=== PATIENT | female | born 2000 | race Caucasian/White ===

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

== ENCOUNTER → 2021-08-30 15:27 | Outpatient (CLI) | payer MEDICAID, SELFPAY ==
[2021-08-30 16:46] LABS: Amphetamine Urine VISTA NEGATIVE (<1000 ng/mL); Barbiturate Urine VISTA NEGATIVE (< 200 ng/mL); Benzodiazepine Urine VISTA NEGATIVE (< 200 ng/mL); Cocaine Urine VISTA NEGATIVE (< 300 ng/mL); Ecstacy Urine VISTA NEGATIVE (< 500 ng/mL); Methadone Urine VISTA NEGATIVE (< 300 ng/mL); PCP Urine VISTA NEGATIVE (< 25 ng/mL); THC Urine VISTA NEGATIVE (< 50 ng/mL); Vista UDS pH Range 6
[2021-09-04 00:06] LABS: Chlamydia By Nucleic Acid AMP Negative (Negative)
[2021-09-04 00:41] LABS: Gonococcus By Nucleic Acid AMP Negative (Negative)
[2021-09-04 16:32] LABS: HPV Reflexed? NOT INDICATED
== END ==
PROVIDERS: PCP Family Medicine; Visit Provider Obstetrics & Gynecology
DX: Z34.80 Encounter for supervision of other normal pregnancy, unspecified trimester (principal)
CPT/HCPCS: 80307; 87086; 87088; 87491; 87591; 88175; G0145

== ENCOUNTER → 2021-09-07 14:03 | Outpatient (CLI) | payer MEDICAID, SELFPAY ==
[2021-09-07 15:11] LABS: NATERA MAILED SPECIMEN
[2021-09-07 15:21] LABS: Absolute Lymphocyte Count 1.46 X10^3/uL (0.83-4.51); Absolute Neutrophil Count 6.4 X10^3/uL (2.0-7.7); Basophil# 0.02 X10^3/uL; Basophil% 0.2 % (0-1); Eosinophil# 0.06 X10^3/uL; Eosinophils% 0.7 % (0-5); Hematocrit 38.8 % (37-47); Hemoglobin 13.6 g/dL (12.0-15.0); Lymphocyte # 1.46 X10^3/ul (0.83-4.51); Lymphocyte % 17.6 % (19-41); Mean Corp Hgb Conc 35.1 g/dL (32-36); Mean Corpuscular Hgb 30.1 pg (27.0-32.0); Mean Corpuscular Volume 85.8 fL (81-99); Mean Platelet Vol. 10.2 fl (6.2-12.0); Monocyte# 0.32 X10^3/uL; Monocyte% 3.9 % (0-10); NRBC Flagged by Analyzer 0 % (0-5); Neutrophil # 6.39 X10^3/uL (2.7-7.7); Neutrophil % 77.2 % (47-70); Platelet Count 172 K/mm3 (150-450); RBC Distribution Width CV 12.8 % (11.6-14.6); RBC Distribution Width SD 39.9 fl (35.1-43.9); Red Blood Count 4.52 M/mm3 (4.2-5.4); White Blood Count 8.3 K/mm3 (4.4-11.0)
[2021-09-10 08:37] LABS: HIV - WCH Non-Reactive (Nonreactive); Hepatitis B Surface Antigen Non-Reactive (Nonreactive); Hepatitis C Antibody Non-Reactive (Nonreactive); Rubella IgG Reactive (Nonreactive); Syphilis Antibodies Non-reactive
== END ==
PROVIDERS: PCP Family Medicine; Referring Provider Obstetrics & Gynecology; Visit Provider Obstetrics & Gynecology
DX: Z34.80 Encounter for supervision of other normal pregnancy, unspecified trimester (principal)
CPT/HCPCS: 36415; 85025; 86703; 86762; 86780; 86803; 86850; 86900; 86901; 87340

== ENCOUNTER → 2021-11-19 13:10 | Outpatient (CLI) | payer MEDICAID, SELFPAY | PROVIDERS: PCP Family Medicine; Referring Provider Obstetrics & Gynecology; Visit Provider Obstetrics & Gynecology | DX: Z36.9 Encounter for antenatal screening, unspecified (principal) | CPT/HCPCS: 36415 ==

== ENCOUNTER 2022-01-07 08:48 | Outpatient (CLI) | payer MEDICAID, SELFPAY ==
[2022-01-07 09:22] LABS: Absolute Lymphocyte Count 1.59 X10^3/uL (0.83-4.51); Absolute Neutrophil Count 6.9 X10^3/uL (2.0-7.7); Basophil# 0.03 X10^3/uL; Basophil% 0.3 % (0-1); Eosinophil# 0.08 X10^3/uL; Eosinophils% 0.9 % (0-5); Hematocrit 34.1 % (37-47); Hemoglobin 11.4 g/dL (12.0-15.0); Lymphocyte # 1.59 X10^3/ul (0.83-4.51); Lymphocyte % 17.2 % (19-41); Mean Corp Hgb Conc 33.4 g/dL (32-36); Mean Corpuscular Hgb 30.1 pg (27.0-32.0); Mean Platelet Vol. 9.5 fl (6.2-12.0); Monocyte# 0.52 X10^3/uL; Monocyte% 5.6 % (0-10); NRBC Flagged by Analyzer 0 % (0-5); Neutrophil # 6.93 X10^3/uL (2.7-7.7); Neutrophil % 74.7 % (47-70); Platelet Count 178 K/mm3 (150-450); RBC Distribution Width CV 13.9 % (11.6-14.6); RBC Distribution Width SD 45.7 fl (35.1-43.9); Red Blood Count 3.79 M/mm3 (4.2-5.4); White Blood Count 9.3 K/mm3 (4.4-11.0)
[2022-01-07 09:49] LABS: Glucose Challenge Gest 1H 50g 134 mg/dL (70-140)
== END 2022-01-07 23:59 | disposition home or self-care (01) ==
LOC: LAB 08:50
PROVIDERS: PCP Family Medicine; Referring Provider Obstetrics & Gynecology; Visit Provider Obstetrics & Gynecology
DX: Z13.1 Encounter for screening for diabetes mellitus (principal)
CPT/HCPCS: 36415; 82950; 85025

== ENCOUNTER 2022-03-13 13:33 | Outpatient (CLI) | payer MEDICAID, SELFPAY | END 2022-03-13 23:59 | disposition home or self-care (01) | LOC: LABSPEC 13:38 | PROVIDERS: PCP Family Medicine; Visit Provider Obstetrics & Gynecology | DX: Z34.80 Encounter for supervision of other normal pregnancy, unspecified trimester (principal) | CPT/HCPCS: 87081 ==

== ENCOUNTER 2022-03-13 18:25 | Outpatient (CLI) | payer MEDICAID, SELFPAY ==
[2022-03-13 18:36] VITALS: BP 115/73; PULSE 93; TEMP 37.1; O2SAT 98
[2022-03-13 18:54] VITALS: BP 115/73; PULSE 91; PULSE 92; O2SAT 98
[2022-03-13 19:10] VITALS: BMI 26.0
[2022-03-13 22:08] LABS: Group B Strep DNA By PCR Negative (Negative); Internal Control PASS; Specimen Processing Control PASS
[2022-03-13 22:09] LABS: Probe Check PASS
--- NOTE | 2022-03-14 04:33 | OB.TRI.PN ---
Progress Notes Date of Service: 03/13/22 Progress Note: riginal Note: HPI - General General Date of Admission: 03/13/22 Date of Service: 03/13/22 Chief Complaint: labor contractions HPI Narrative COLBY HATHAWAY, is a 21 y/o @ 37 weeks 2 days F who presents with painful contractions. she was seen in the office today and foun to be 3 cm/80/-2 and per nurse, she is the same Maternal Data Information LAILA Calculator Estimated Delivery Date Method Current WG Current Estimate 04/02/22 LMP (Certain) 37w 2d Other Estimates 04/01/22 Ultrasound #1 37w 3d PFSH PFSH Home Medications [id number]-[id number] 1 tab PO DAILY 03/13/22 [History Last Taken 12/14/21] ibuprofen 600 mg PO Q6H PRN 7 Days #28 tab 03/14/22 [Rx Last Taken Unknown] Allergy/AdvReac Type Severity Reaction Status Date / Time Penicillins Allergy Mild Angioedema Verified 03/13/22 10:13 Family History Grandmother Breast cancer Social History household members: spouse current occupational status: unemployed Smoking Status: Never smoker second hand exposure: No alcohol intake: never substance use type: does not use caffeine: Yes Type: carbonated beverages what type of physical activity do you participate in: walking seatbelt use: always do you feel safe at home: Yes additional social history: - [place] History 2 Elective abortions Hx Para 1 Spontaneous abortions Hx # Term Pregnancies Ectopic pregnancies Hx # Pregnancies Multiple births # of living children 1 Past Pregnancies Del. Date Name GA/Weeks Outcome Route Bth Weight Infant Gen Labor Lgth Anesthesia Del [facility] Provider FOB 10/02/19 Iftikhar 38 live - full term vacuum 7lbs 3oz Male 13 hours epidural [facility] [place] Delivery Date: 10/02/19 Prolonged 2nd stage Lexi Fernandez Visit Details Expected Delivery Route/Plan Labor Preferences- CB/BF classes: no labor support person: [place] labor intervention preferences: [] pain management options preferred: epidural cut cord/dad catch: yes : yes PP control planned: discussed IUD discussed possible routes of delivery and associated risks: [] special requests: [] Plans Covid status: non immune counseled regarding risk of covid in vs vaccination and declined vaccination Flu vaccine: discussed Tdap vaccine: given Rhogam: NA LARC form signed: yes Problem list reviewed and updated with the most current plan of care details and appropriate orders placed. Relevant counseling for the gestational age provided. Continue routine care and follow up unless otherwise noted in visit notes/problem list details OB Flowsheet Initial Weight: 120 lb Date EGA Weight BP Urine Prot Glucose FHR FuHt Pres Dilation Effaced St Visit Note 08/30/21 9w 2d 120 lb 6 oz (+6 oz) 114/78 170 SM- CRL cons with LMP SM- CRL 2cm cons with LMP 09/24/21 12w 6d 121 lb (+16 oz) 110/76 160 SM- no vb crmaping 10/22/21 16w 6d 125 lb 2 oz (+5 lb 2 oz) 114/72 157 JV- low risk NIPT. afp ordered. no complaints. 11/19/21 20w 6d 132 lb (+12 lb) 104/72 Negative Negative 155 SM- no vb lof good fm no reuglar ctx afp drawn today 12/26/21 26w 1d 140 lb (+20 lb) 118/76 Negative 148 MH-No VB, LOF. Good FM. will do 28wk labs, tdap next visit. Larc done 01/07/22 27w 6d 142 lb 6 oz (+22 lb 6 oz) 120/70 Negative Negative 153 27 MH-No VB, LOF. Good FM. 28 wk labs and tdap today 01/29/22 31w 0d 145 lb (+25 lb) 130/78 Negative Negative 147 31 JV- no lof, vaginal bleeding, or dec fm. no complaints today 02/04/22 31w 6d 148 lb (+28 lb) 126/82 Negative Negative 150 32 Cephalic Sm- no vb lof good fm no regular ctx 02/22/22 34w 3d 149 lb 6 oz (+29 lb 6 oz) 118/70 Negative Negative 145 34 Cephalic Sm- no vb lof good fm no regular ctx 03/04/22 35w 6d 149 lb (+29 lb) 102/60 Negative Negative 140 36 Cephalic SM- no vb lof good fm nor euglar ctx 03/13/22 37w 1d 149 lb (+29 lb) 112/88 Negative Negative 185 37 Cephalic 3 80 -2 JV- NST today for tachycardia, heart rate came down to 160's and reactive. pt is having contractions on the monitor every 2-3 min but not feeling them. labor precautions discussed 03/14/22 37w 2d 147 lb (+27 lb) 132/80 132/80 123/64 123/64 ROS Constitutional Constitutional: Reports systems reviewed and no addt'l complaints, except as documented Gastrointestinal Gastrointestinal: Denies bloating, constipation, cramping, diarrhea, nausea or vomiting Genitourinary Genitourinary: Reports other Details: Denies vaginal odor, vaginal bleeding, or vaginal discharge ; Denies difficulty urinating or flank pain Physical Exam HEENT normocephalic Resp normal respiratory effort and normal air movement no CVA tenderness Extremity normal to inspection General Extremity: edema bilateral (trace ) NST FHR Rate Baby A Baseline: 140 Variability:: Moderate Accelerations:: 15 x 15 Decelerations:: None NST Reactive:: Yes FHR Category:: Category I Assessment & Plan (1) False labor: PLAN: pt did not change cervix for 5 hours.She was given options to go home and rest or stay over night and she chooses to go home. She was discharged to home at 11:30 pm on 03/13/22 Charges/Coding Multi Select Codes Visit Charges Office Visit/Consults: 97357 OV L3 Est Urinary/Genital Urinary/Genital CPT Codes: 58945-95 non-stress test Interp Addendum entered and electronically signed by Mela Lane DO 03/14/22 04:30: Laboratory Studies: Laboratory Tests 03/13/22 Range/Units 20:45 Group B Strep DNA Negative (Negative) Specimen Comment Not Reportable Charges/Coding Multi Select Codes Visit Charges Office Visit/Consults: 18710 OV L3 Est Urinary/Genital Urinary/Genital CPT Codes: 18492-38 non-stress test Interp
== END 2022-03-13 23:59 | disposition home or self-care (01) ==
LOC: WPOUT 18:29 → WP 18:29
PROVIDERS: PCP Family Medicine; Visit Provider Obstetrics & Gynecology
DX: O47.9 False labor, unspecified (principal); Z3A.37 37 weeks gestation of pregnancy
CPT/HCPCS: 59025; 59050; 87081; 87653; 99218; G0378

== ENCOUNTER 2022-03-14 03:35 | Inpatient (IN) | payer MEDICAID, SELFPAY ==
[2022-03-14] VITALS (17 sets, daily range): BP systolic 96–132; BP diastolic 59–80; PULSE 76–121; RESP 16; TEMP 36.1–37.2; O2SAT 100; BMI 26.0
[2022-03-14 04:09] LABS: Absolute Lymphocyte Count 2.82 X10^3/uL (0.83-4.51); Absolute Neutrophil Count 8.3 X10^3/uL (2.0-7.7); Basophil# 0.06 X10^3/uL; Basophil% 0.5 % (0-1); Eosinophil# 0.08 X10^3/uL; Eosinophils% 0.7 % (0-5); Hematocrit 36.3 % (37-47); Lymphocyte # 2.82 X10^3/ul (0.83-4.51); Lymphocyte % 23.1 % (19-41); Mean Corp Hgb Conc 33.1 g/dL (32-36); Mean Corpuscular Hgb 26.8 pg (27.0-32.0); Mean Platelet Vol. 10.3 fl (6.2-12.0); Monocyte% 6.5 % (0-10); NRBC Flagged by Analyzer 0 % (0-5); Neutrophil # 8.31 X10^3/uL (2.7-7.7); Neutrophil % 67.9 % (47-70); Platelet Count 202 K/mm3 (150-450); RBC Distribution Width SD 42.6 fl (35.1-43.9); Red Blood Count 4.48 M/mm3 (4.2-5.4); White Blood Count 12.2 K/mm3 (4.4-11.0)
--- NOTE | 2022-03-14 04:17 | HP.PCM.OB_ITS ---
HPI - General General Date of Admission: 03/14/22 HPI Narrative COLBY HATHAWAY, is a 21 y/o @ 37 weeks 2 days who presents to L&D with rupture of membranes and 5 cm dilated per nurse. She was dischraged a few hours early from triage due to false labor. Maternal Data Information LAILA Calculator Estimated Delivery Date Method Current WG Current Estimate 04/02/22 LMP (Certain) 37w 2d Other Estimates 04/01/22 Ultrasound #1 37w 3d PFSH PFSH Home Medications ejdyplxb-ckd-Se-FA [] 1 tab PO DAILY 03/13/22 [History Last Taken 12/14/21] Allergy/AdvReac Type Severity Reaction Status Date / Time Penicillins Allergy Mild Angioedema Verified 03/13/22 10:13 Family History Grandmother Breast cancer Social History household members: spouse current occupational status: unemployed Smoking Status: Never smoker second hand exposure: No alcohol intake: never substance use type: does not use caffeine: Yes Type: carbonated beverages what type of physical activity do you participate in: walking seatbelt use: always do you feel safe at home: Yes additional social history: - Jackson History 2 Elective abortions Hx Para 1 Spontaneous abortions Hx # Term Pregnancies Ectopic pregnancies Hx # Pregnancies Multiple births # of living children 1 Past Pregnancies Del. Date Name GA/Weeks Outcome Route Bth Weight Infant Gen Labor Lgth Anesthesia [facility] Provider FOB 10/02/19 Iftikhar 38 live - full term vacuum 7lbs 3oz Male 13 h ours epidural [facility] Jackson Delivery Date: 10/02/19 Prolonged 2nd stage Lexi Fernandez Visit Details Expected Delivery Route/Plan Labor Preferences- CB/BF classes: no labor support person: Jackson labor intervention preferences: [] pain management options preferred: epidural cut cord/dad catch: yes : yes PP control planned: discussed IUD discussed possible routes of delivery and associated risks: [] special requests: [] Plans Covid status: non immune counseled regarding risk of covid in vs vaccination and declined vaccination Flu vaccine: discussed Tdap vaccine: given Rhogam: NA LARC form signed: yes Problem list reviewed and updated with the most current plan of care details and appropriate orders placed. Relevant counseling for the gestational age provided. Continue routine care and follow up unless otherwise noted in visit notes/problem list details OB Flowsheet Initial Weight: 120 lb Date -?-?-?-?-?-?-?-?-?-?-?-?- EGA Weight BP Urine Prot -?-?-?-?-?-?-?-?-?-?-?-?- Glucose FHR FuHt Pres Dilation -?-?-?-?-?-?-?-?-?-?-?-?- Effaced St Visit Note 08/30/21 -?-?-?-?-?-?-?-?-?-?-?-?- 9w 2d 120 lb 6 oz (+6 oz) 114/78 -?-?-?-?-?-?-?-?-?-?-?-?- 170 -?-?-?-?-?-?-?-?-?-?-?-?- SM- CRL cons wit h LMP SM- CRL 2cm cons with LMP 09/24/21 -?-?-?-?-?-?-?-?-?-?-?-?- 12w 6d 121 lb (+16 oz) 110/76 -?-?-?-?-?-?-?-?-?-?-?-?- 160 -?-?-?-?-?-?-?-?-?-?-?-?- SM- no vb crmapi ng 10/22/21 -?-?-?-?-?-?-?-?-?-?-?-?- 16w 6d 125 lb 2 oz (+5 lb 2 oz) 114/72 -?-?-?-?-?-?--?-?-?-?-?-?- 157 -?-?-?-?-?-?-?-?-?-?-?-?- JV- low risk NIP T. afp ordered. no complaints. 11/19/21 -?-?-?-?-?-?-?-?-?-?-?-?- 20w 6d 132 lb (+12 lb) 104/72 Negative -?-?-?-?-?-?-?-?-?-?-?-?- Negative 155 -?-?-?-?-?-?-?-?-?-?-?-?- SM- no vb lof go od fm no reuglar ctx afp drawn today 12/26/21 -?-?-?-?-?-?-?-?-?-?-?-?- 26w 1d 140 lb (+20 lb) 118/76 Negative -?-?-?-?-?-?-?-?-?-?-?-?- 148 -?-?-?-?-?-?-?-?-?-?-?-?- MH-No VB, LOF. G ood FM. will do 28wk labs, tdap next visit. Larc done 01/07/22 -?-?-?-?-?-?-?-?-?-?-?-?- 27w 6d 142 lb 6 oz (+22 lb 6 oz) 120/70 Negative -?-?-?-?-?-?-?-?-?-?-?-?- Negative 153 27 -?-?-?-?-?-?-?-?-?-?-?-?- MH-No VB, LOF. G ood FM. 28 wk labs and tdap today 01/29/22 -?-?-?-?-?-?-?-?-?-?-?-?- 31w 0d 145 lb (+25 lb) 130/78 Negative -?-?-?-?-?-?-?-?-?-?-?-?- Negative 147 31 -?-?-?-?-?-?-?-?-?-?-?-?- JV- no lof, vagi nal bleeding, or dec fm. no complaints today 02/04/22 -?-?-?-?-?-?-?-?-?-?-?-?- 31w 6d 148 lb (+28 lb) 126/82 Negative -?-?-?-?-?-?-?-?-?-?-?-?- Negative 150 32 Cephalic -?-?-?-?-?-?-?-?-?-?-?-?- Sm- no vb lof go od fm no regular ctx 02/22/22 -?-?-?-?-?-?-?-?-?-?-?-?- 34w 3d 149 lb 6 oz (+29 lb 6 oz) 118/70 Negative -?-?-?-?-?-?-?-?-?-?-?-?- Negative 145 34 Cephalic -?-?-?-?-?-?-?-?-?-?-?-?- Sm- no vb lof go od fm no regular ctx 03/04/22 -?-?-?-?-?-?-?-?-?-?-?-?- 35w 6d 149 lb (+29 lb) 102/60 Negative -?-?-?-?-?-?-?-?-?-?-?-?- Negative 140 36 Cephalic -?-?-?-?-?-?-?-?-?-?-?-?- SM- no vb lof go od fm nor euglar ctx 03/13/22 -?-?-?-?-?-?-?-?-?-?-?-?- 37w 1d 149 lb (+29 lb) 112/88 Negative -?-?-?-?-?-?-?-?-?-?-?-?- Negative 185 37 Cephalic 3 -?-?-?-?-?-?-?-?-?-?-?-?- 80 -2 JV- NST to day for tachycardia, heart rate came down to 160's and reactive. pt is having contractions on the monitor every 2-3 min but not feeling them. labor precautions discussed 03/14/22 -?-?-?-?-?-?-?-?-?-?-?-?- 37w 2d 147 lb (+27 lb) 132/80 132/80 123/64 123/64 -?-?-?-?-?-?-?-?-?-?-?-?- -?-?-?-?-?-?-?-?-?-?-?-?- ROS Constitutional Constitutional: Denies change in weight, fatigue, fever(s), headache(s), poor appetite or weakness Eyes Eyes: Denies blurry vision, change in vision, seeing flashes or spots in vision ENT HEENT: Denies dizziness, headache(s), loss taste/smell or sore throat Cardiovascular Cardiovascular: Denies chest pain, dizziness, dyspnea, irregular heart rhythm, leg edema, palpitations, rapid heart rate or vomiting Respiratory/Chest Respiratory/Chest: Denies chest tightness, cough, dyspnea or breast pain Gastrointestinal Gastrointestinal: Denies abdominal pain, anorexia, constipation, cramping, diarrhea, hemorrhoids, vomiting or weight changes Genitourinary Genitourinary: Denies dysuria, flank pain, genital lesions, genital pain, urinary frequency or urinary urgency Musculoskeletal Musculoskeletal: Denies back pain, difficulty walking, joint pain, limited range of motion, muscle cramps or numbness Integumentary Integumentary: Denies lesions or unusual bruising Neurologic Neurologic: Denies abnormal movements, abnormal speech, dizziness, numbness, seizure-like activity or syncope Psychiatric Psychiatric: Denies anxiety, behavioral changes, change in appetite, change in libido, cognitive impairment, confusion, depression, difficulty concentrating, hallucinations or suicidal thoughts Endocrine Endocrinology: Denies excessive sweating, polydipsia or polyuria Hematologic/Lymphatic Hematologic/Lymphatic: Denies easy bleeding, easy bruising or lymphadenopathy Allergic/Immunologic Allergic/Immunologic: Denies itchy eyes, lip swelling, seasonal rhinorrhea, rhinitis, throat swelling, tongue swelling, eczemia, wheezing or asthma Vital Signs Vital Signs Vital Signs: 03/14/22 03:24 03/14/22 03:29 03/14/22 03:32 Temperature 97.0 F L Temperature Source Temporal Pulse Rate 97 107 H Blood Pressure BP Systolic BP Diastolic Pulse Ox 100 100 03/14/22 03:33 Temperature Temperature Source Pulse Rate 121 H Blood Pressure 132/80 H BP Systolic 132 BP Diastolic 80 Pulse Ox Weight Weight: 147 lb Body Mass Index (BMI) 26.0 Physical Exam Const alert, oriented x3, no apparent distress and healthy appearing General Appearance: cooperative; Negative for anxious HEENT normocephalic Face and Sinus: normal facial exam Eyes EOMs intact bilaterally and no scleral icterus General Eye: normal appearance of both eyes Neck full ROM and supple Lymph Lymphatic: no lymphadenopathy noted Chest Chest: abnormal inspection of the chest Resp normal respiratory effort Effort and Inspection: able to speak in complete sentences Cardio regular rate GI soft to palpation and non-tender Inspection: gravid Palpation: soft; Negative for tender external exam normal Back/Spine no CVA tenderness Extremity normal to inspection, full ROM and no clubbing, cyanosis or edema General Extremity: Negative for calf tenderness or edema Skin Lesions: no lesions Rashes: no rashes Psych mental status grossly normal Labs Labs Labs: Blood Type O POSITIVE Antibody Screen NEGATIVE Hct 36.3 % (37-47) L Hgb 12.0 g/dL (12.0-15.0) Obstetrics US Syphilis Total Ab Non-reactive Rubella IgG Antibody Reactive (Nonreactive) Hep Bs Antigen Non-Reactive (Nonreactive) Chlamydia DNA (KISHA) Negative (Negative) Neisseria gonorrhoeae DNA (KISHA) Negative (Negative) HIV 1&2 Antibody Non-Reactive (Nonreactive) Glucose 1 Hr 50 gm 134 mg/dL (70-140) Group B Strep DNA Negative (Negative) Rhogam given: No Miscellaneous Test Assessment & Plan (1) Supervision of other normal : COMMENT: PRR LAILA: 04/02/22 girl Ruben PC: Iftikhar Spouse: Jackson (2) : QUALIFIERS: Weeks of gestation: 37 weeks Qualified Code(s): Z3A.37 - 37 weeks gestation of COMMENT: genetics- low risk female, carrier- neg . NL anatomy, neg AFP screen PLAN: Patient presents IAL, plan expectant management for , pitocin/AROM PRN if needed. Pain management: unsure. GBS negative . Management of any complications: none I have reviewed the [facility] and made any clinically relevant updates.
--- NOTE | 2022-03-14 04:19 | OP.PCM_ITS ---
Maternal Data Information LAILA Calculator Estimated Delivery Date Method Current Current Estimate 04/02/22 LMP (Certain) 37w 2d Other Estimates 04/01/22 Ultrasound #1 37w 3d Vaginal Delivery Maternal Presentation Maternal Presentation: Active Labor Operative Information Date of Procedure: 03/14/22 Pre-Operative Diagnosis: @ 37 weeks 2 days, SROM, active labor Post-Operative Diagnosis: @ 37 weeks 2 days, SROM, active labor Surgery / Procedure Performed: Spontaneous Vaginal Delivery Type of Anesthesia: None Estimated Blood Loss: 50cc Findings Description of Procedure: Patient began pushing and delivered the head in the ALEK presentation. The head was delivered atraumatically and a loose nuchal cord ?1 was identified and easily reduced over the 's head. The anterior and posterior shoulders delivered without complication followed by the rest of the infant and the was placed on the maternal abdomen. Delayed cord clamping was employed for approximately 60 seconds. Cord was clamped and cut and gentle traction was applied to the cord and the placenta delivered spontaneously immediately following it was noted to be intact with three-vessel cord. The perineum and vagina were inspected and noted to have no laceration. EBL was 50cc. Patient and infant tolerated delivery well. Presentation: Vertex Amniotic Fluid Description: Clear Placental Delivery Description: Spontaneous Placenta Disposition: [facility] Cord Vessel Description: 3 Vessels Cord Entanglement: Around neck x 1, loose Infant A Gender: Female (1 minute): 8 (5 minute): 9 Delayed Cord Clamping: Yes Post Vaginal Delivery Medications Given After Delivery: IV Pitocin Episiotomy Description: None Laceration: None Complication Complications: None Multi Select Codes Urinary/Genital Urinary/Genital CPT Codes: 41864 Vaginal Delivery [facility]
--- NOTE | 2022-03-14 04:22 | PCM.DC ---
Discharge Instructions Diet Discharge Diet: No restrictions Activity Discharge Activity: Return to Normal Activity, May Not Drive (while taking narcotic pain medications.) and May Shower May resume sexual activity in: 4-6 weeks Dressing / Incision Call your doctor if your incision/area has: Continuous Slow Oozing, Sudden Increased Bleeding, Increased Pain/ Swelling, Increased Redness and Foul Smelling Discharge Follow Up Care Please Follow Up With: Mela Lane, When: Call [phone] to make an appointment with your doctor in 6 weeks. If you had elevated blood pressure or 4th degree laceration, you will need to be seen in 2 weeks. Test Results: Test results from this visit will be discussed in further detail at your follow-up appointment, if applicable. Discharge Plan Admission Admit Date/Time: 03/14/22 03:35 Primary Reason for Your Visit: vaginal delivery Attending Provider: Mela Lane Primary Care Provider: Bharati Sharpe Discharge Orders/Prescriptions Prescriptions: New ibuprofen 600 mg tablet 600 mg PO Q6H PRN (Reason: pain (scale score 4-6)) 7 Days Qty: 28 RF: 0 Continued jzmnhedw-[id number]-[id number] 1 mg Tablet 1 tab PO DAILY RF: 0 Referrals / Follow Up: Bharati Sharpe PA-C [Primary Care Provider] - Disposition Disposition (needs filled in before D/C Order can be placed): Home, Self Care
--- NOTE | 2022-03-14 04:27 | OB.TRI.HP_ITS ---
HPI - General General Date of Admission: 03/13/22 Date of Service: 03/13/22 Chief Complaint: labor contractions HPI Narrative COLBY HATHAWAY, is a 21 y/o @ 37 weeks 2 days F who presents with painful contractions. she was seen in the office today and foun to be 3 cm/80/-2 and per nurse, she is the same Maternal Data Information LAILA Calculator Estimated Delivery Date Method Current WG Current Estimate 04/02/22 LMP (Certain) 37w 2d Other Estimates 04/01/22 Ultrasound #1 37w 3d PFSH PFSH Home Medications [id number]-[id number]-Fg-FA 1 tab PO DAILY 03/13/22 [History Last Taken 12/14/21] ibuprofen 600 mg PO Q6H PRN 7 Days #28 tab 03/14/22 [Rx Last Taken Unknown] Allergy/AdvReac Type Severity Reaction Status Date / Time Penicillins Allergy Mild Angioedema Verified 03/13/22 10:13 Family History Grandmother Breast cancer Social History household members: spouse current occupational status: unemployed Smoking Status: Never smoker second hand exposure: No alcohol intake: never substance use type: does not use caffeine: Yes Type: carbonated beverages what type of physical activity do you participate in: walking seatbelt use: always do you feel safe at home: Yes additional social history: - [place] History 2 Elective abortions Hx Para 1 Spontaneous abortions Hx # Term Pregnancies Ectopic pregnancies Hx # Pregnancies Multiple births # of living children 1 Past Pregnancies Del. Date Name GA/Weeks Outcome Route Bth Weight Gen Labor L[facility]est[facility] F[facility] 10/02/19 Iftikhar 38 live - full term vacuum 7lbs 3oz Male 13 h ours epidural [facility] [place] Delivery Date: 10/02/19 Prolonged 2nd stage Lexi Fernandez Visit Details Expected Delivery Route/Plan Labor Preferences- CB/BF classes: no labor support person: [place] labor intervention preferences: [] pain management options preferred: epidural cut cord/dad catch: yes : yes PP control planned: discussed IUD discussed possible routes of delivery and associated risks: [] special requests: [] Plans Covid status: non immune counseled regarding risk of covid in vs vaccination and declined vaccination Flu vaccine: discussed Tdap vaccine: given Rhogam: NA LARC form signed: yes Problem list reviewed and updated with the most current plan of care details and appropriate orders placed. Relevant counseling for the gestational age provided. Continue routine care and follow up unless otherwise noted in visit notes/problem list details OB Flowsheet Initial Weight: 120 lb Date -?-?-?-?-?-?-?-?-?-?-?-?- EGA Weight BP Urine Prot -?-?-?-?-?-?-?-?-?-?-?-?- Glucose FHR FuHt Pres Dilation -?-?-?-?-?-?-?-?-?-?-?-?- Effaced St Visit Note 08/30/21 -?-?-?-?-?-?-?-?-?-?-?-?- 9w 2d 120 lb 6 oz (+6 oz) 114/78 -?-?-?-?-?-?-?-?-?-?-?-?- 170 -?-?-?-?-?-?-?-?-?-?-?-?- SM- CRL cons wit h LMP SM- CRL 2cm cons with LMP 09/24/21 -?-?-?-?-?-?-?-?-?-?-?-?- 12w 6d 121 lb (+16 oz) 110/76 -?-?-?-?-?-?-?-?-?-?-?-?- 160 -?-?-?-?-?-?-?-?-?-?-?-?- SM- no vb crmapi ng 10/22/21 -?-?-?-?-?-?-?-?-?-?-?-?- 16w 6d 125 lb 2 oz (+5 lb 2 oz) 114/72 -?-?-?-?-?-?-?-?-?-?-?-?- 157 -?-?-?-?-?-?-?-?-?-?-?-?- JV- low risk NIP T. afp ordered. no complaints. 11/19/21 -?-?-?-?-?-?-?-?-?-?-?-?- 20w 6d 132 lb (+12 lb) 104/72 Negative -?-?-?-?-?-?-?-?-?-?-?-?- Negative 155 -?-?-?-?-?-?-?-?-?-?-?-?- SM- no vb lof go od fm no reuglar ctx afp drawn today 12/26/21 -?-?-?-?-?-?-?-?-?-?-?-?- 26w 1d 140 lb (+20 lb) 118/76 Negative -?-?-?-?-?-?-?-?-?-?-?-?- 148 -?-?-?-?-?-?-?-?-?-?-?--?- -No VB, LOF. G ood FM. will do 28wk labs, tdap next visit. Larc done 01/07/22 -?-?-?-?-?-?-?-?-?-?-?-?- 27w 6d 142 lb 6 oz (+22 lb 6 oz) 120/70 Negative -?-?-?-?-?-?-?-?-?-?-?-?- Negative 153 27 -?-?-?-?-?-?-?-?-?-?-?-?- -No VB, LOF. G ood FM. 28 wk labs and tdap today 01/29/22 -?-?-?-?-?-?-?-?-?-?-?-?- 31w 0d 145 lb (+25 lb) 130/78 Negative -?-?-?-?-?-?-?-?-?-?-?-?- Negative 147 31 -?-?-?-?-?-?-?-?-?-?-?-?- JV- no lof, vagi nal bleeding, or dec fm. no complaints today 02/04/22 -?-?-?-?-?-?-?-?-?-?-?-?- 31w 6d 148 lb (+28 lb) 126/82 Negative -?-?-?-?-?-?-?-?-?-?-?-?- Negative 150 32 Cephalic -?-?-?-?-?-?-?-?-?-?-?-?- Sm- no vb lof go od fm no regular ctx 02/22/22 -?-?-?-?-?-?-?-?-?-?-?-?- 34w 3d 149 lb 6 oz (+29 lb 6 oz) 118/70 Negative -?-?-?-?-?-?-?-?-?-?-?-?- Negative 145 34 Cephalic -?-?-?-?-?-?-?-?-?-?-?-?- Sm- no vb lof go od fm no regular ctx 03/04/22 -?-?-?-?-?-?-?-?-?-?-?-?- 35w 6d 149 lb (+29 lb) 102/60 Negative -?-?-?-?-?-?-?-?-?-?-?-?- Negative 140 36 Cephalic -?-?-?-?-?-?-?-?-?-?-?-?- SM- no vb lof go od fm nor euglar ctx 03/13/22 -?-?-?-?-?-?-?-?-?-?-?-?- 37w 1d 149 lb (+29 lb) 112/88 Negative -?-?-?-?-?-?-?-?-?-?-?-?- Negative 185 37 Cephalic 3 -?-?-?-?-?-?--?-?-?-?-?-?- 80 -2 JV- NST to day for tachycardia, heart rate came down to 160's and reactive. pt is having contractions on the monitor every 2-3 min but not feeling them. labor precautions discussed 03/14/22 -?-?-?-?-?-?-?-?-?-?-?-?- 37w 2d 147 lb (+27 lb) 132/80 132/80 123/64 123/64 -?-?-?-?-?-?-?-?-?-?-?-?- -?-?-?-?-?-?-?-?-?-?-?-?- ROS Constitutional Constitutional: Reports systems reviewed and no addt'l complaints, except as documented Gastrointestinal Gastrointestinal: Denies bloating, constipation, cramping, diarrhea, nausea or vomiting Genitourinary Genitourinary: Reports other Details: Denies vaginal odor, vaginal bleeding, or vaginal discharge ; Denies difficulty urinating or flank pain Physical Exam HEENT normocephalic Resp normal respiratory effort and normal air movement no CVA tenderness Extremity normal to inspection General Extremity: edema bilateral (trace ) NST FHR Rate Baby A Baseline: 140 Variability:: Moderate Accelerations:: 15 x 15 Decelerations:: None NST Reactive:: Yes FHR Category:: Category I Assessment & Plan (1) False labor: PLAN: pt did not change cervix for 5 hours.She was given options to go home and rest or stay over night and she chooses to go home. She was discharged to home at 11:30 pm on 03/13/22 Charges/Coding Multi Select Codes Visit Charges Office Visit/Consults: 82505 OV L3 Est Urinary/Genital Urinary/Genital CPT Codes: 70332-36 non-stress test Interp
--- NOTE | 2022-03-14 04:27 | OB.TRI.NOTE ---
HPI - General General Date of Admission: 03/13/22 Date of Service: 03/13/22 Chief Complaint: labor contractions HPI Narrative COLBY HATHAWAY, is a 21 y/o @ 37 weeks 2 days F who presents with painful contractions. she was seen in the office today and foun to be 3 cm/80/-2 and per nurse, she is the same Maternal Data Information LAILA Calculator Estimated Delivery Date Method Current WG Current Estimate 04/02/22 LMP (Certain) 37w 2d Other Estimates 04/01/22 Ultrasound #1 37w 3d PFSH PFSH Home Medications [id number]-[id number]-FA 1 tab PO DAILY 03/13/22 [History Last Taken 12/14/21] ibuprofen 600 mg PO Q6H PRN 7 Days #28 tab 03/14/22 [Rx Last Taken Unknown] Allergy/AdvReac Type Severity Reaction Status Date / Time Penicillins Allergy Mild Angioedema Verified 03/13/22 10:13 Family History Grandmother Breast cancer Social History household members: spouse current occupational status: unemployed Smoking Status: Never smoker second hand exposure: No alcohol intake: never substance use type: does not use caffeine: Yes Type: carbonated beverages what type of physical activity do you participate in: walking seatbelt use: always do you feel safe at home: Yes additional social history: - [place] History 2 Elective abortions Hx Para 1 Spontaneous abortions Hx # Term Pregnancies Ectopic pregnancies Hx # Pregnancies Multiple births # of living children 1 Past Pregnancies Del. Date Name GA/Weeks Outcome Route Bth Weight Gen Labor Lgth Anesthesia Del [facility] Provider FOB 10/02/19 Iftikhar 38 live - full term vacuum 7lbs 3oz Male 13 hours epidural [facility] [place] Delivery Date: 10/02/19 Prolonged 2nd stage Lexi Fernandez Visit Details Expected Delivery Route/Plan Labor Preferences- CB/BF classes: no labor support person: [place] labor intervention preferences: [] pain management options preferred: epidural cut cord/dad catch: yes : yes PP control planned: discussed IUD discussed possible routes of delivery and associated risks: [] special requests: [] Plans Covid status: non immune counseled regarding risk of covid in vs vaccination and declined vaccination Flu vaccine: discussed Tdap vaccine: given Rhogam: NA LARC form signed: yes Problem list reviewed and updated with the most current plan of care details and appropriate orders placed. Relevant counseling for the gestational age provided. Continue routine care and follow up unless otherwise noted in visit notes/problem list details OB Flowsheet Initial Weight: 120 lb Date <del>?</del> EGA Weight BP Urine Prot <del>?</del> Glucose FHR FuHt Pres Dilation <del>?</del> Effaced St Visit Note 08/30/21 <del>?</del> 9w 2d 120 lb 6 oz (+6 oz) 114/78 <del>?</del> 170 <del>?</del> SM- CRL cons with LMP SM- CRL 2cm cons with LMP 09/24/21 <del>?</del> 12w 6d 121 lb (+16 oz) 110/76 <del>?</del> 160 <del>?</del> SM- no vb crmaping 10/22/21 <del>?</del> 16w 6d 125 lb 2 oz (+5 lb 2 oz) 114/72 <del>?</del> 157 <del>?</del> JV- low risk NIPT. afp ordered. no complaints. 11/19/21 <del>?</del> 20w 6d 132 lb (+12 lb) 104/72 Negative <del>?</del> Negative 155 <del>?</del> SM- no vb lof good fm no reuglar ctx afp drawn today 12/26/21 <del>?</del> 26w 1d 140 lb (+20 lb) 118/76 Negative <del>?</del> 148 <del>?</del> MH-No VB, LOF. Good FM. will do 28wk labs, tdap next visit. Larc done 01/07/22 <del>?</del> 27w 6d 142 lb 6 oz (+22 lb 6 oz) 120/70 Negative <del>?</del> Negative 153 27 <del>?</del> MH-No VB, LOF. Good FM. 28 wk labs and tdap today 01/29/22 <del>?</del> 31w 0d 145 lb (+25 lb) 130/78 Negative <del>?</del> Negative 147 31 <del>?</del> JV- no lof, vaginal bleeding, or dec fm. no complaints today 02/04/22 <del>?</del> 31w 6d 148 lb (+28 lb) 126/82 Negative <del>?</del> Negative 150 32 Cephalic <del>?</del> Sm- no vb lof good fm no regular ctx 02/22/22 <del>?</del> 34w 3d 149 lb 6 oz (+29 lb 6 oz) 118/70 Negative <del>?</del> Negative 145 34 Cephalic <del>?</del> Sm- no vb lof good fm no regular ctx 03/04/22 <del>?</del> 35w 6d 149 lb (+29 lb) 102/60 Negative <del>?</del> Negative 140 36 Cephalic <del>?</del> SM- no vb lof good fm nor euglar ctx 03/13/22 <del>?</del> 37w 1d 149 lb (+29 lb) 112/88 Negative <del>?</del> Negative 185 37 Cephalic 3 <del>?</del> 80 -2 JV- NST today for tachycardia, heart rate came down to 160's and reactive. pt is having contractions on the monitor every 2-3 min but not feeling them. labor precautions discussed 03/14/22 <del>?</del> 37w 2d 147 lb (+27 lb) 132/80 132/80 123/64 123/64 <del>?</del> <del>?</del> ROS Constitutional Constitutional: Reports systems reviewed and no addt'l complaints, except as documented Gastrointestinal Gastrointestinal: Denies bloating, constipation, cramping, diarrhea, nausea or vomiting Genitourinary Genitourinary: Reports other Details: Denies vaginal odor, vaginal bleeding, or vaginal discharge ; Denies difficulty urinating or flank pain Physical Exam HEENT normocephalic Resp normal respiratory effort and normal air movement no CVA tenderness Extremity normal to inspection General Extremity: edema bilateral (trace ) NST FHR Rate Baby A Baseline: 140 Variability:: Moderate Accelerations:: 15 x 15 Decelerations:: None NST Reactive:: Yes FHR Category:: Category I Assessment & Plan (1) False labor: PLAN: pt did not change cervix for 5 hours.She was given options to go home and rest or stay over night and she chooses to go home. She was discharged to home at 11:30 pm on 03/13/22 Charges/Coding Multi Select Codes Visit Charges Office Visit/Consults: 71844 OV L3 Est Urinary/Genital Urinary/Genital CPT Codes: 11405-52 non-stress test Interp
[2022-03-14] MEDS: Acetaminophen 500 MG Tablet PO (16:46)
[2022-03-15 00:11] VITALS: BP 116/70; PULSE 64; RESP 16; TEMP 36.2
[2022-03-15 04:58] VITALS: BP 124/64; PULSE 71; RESP 16; TEMP 36.9; O2SAT 98
[2022-03-15 08:00] VITALS: BP 123/73; PULSE 63; RESP 16; TEMP 36.3
--- NOTE | 2022-03-15 08:09 | PCM.PN.OB ---
Subjective Subjective Patient doing well without complaints. Tolerating PO. Ambulating and voiding without difficulty. feeding well. Denies chest pain, shortness of breath, calf pain/swelling, fevers, chills, lightheadedness. Objective Data Objective Data Vital Signs: Vital Signs Temp Pulse Resp BP Pulse Ox 98.4 F 71 16 124/64 H 98 03/15/22 04:58 03/15/22 04:58 03/15/22 04:58 03/15/22 04:58 03/15/22 04:58 Oxygen Delivery Method Room Air Weight: 147 lb Body Mass Index (BMI) 26.0 Lab / Micro Data Result Diagrams: 03/14/22 03:45 Micro: Microbiology 03/14/22 04:20 Nasal Secretion SARS-CoV-2 Antigen (Rapid) - Final ROS Constitutional Constitutional: Reports systems reviewed and no addt'l complaints, except as documented Cardiovascular Cardiovascular: Reports systems reviewed and no addt'l complaints, except as documented Respiratory/Chest Respiratory/Chest: Reports systems reviewed and no addt'l complaints, except as documented Gastrointestinal Gastrointestinal: Reports systems reviewed and no addt'l complaints, except as documented Physical Exam Const alert, oriented x3 and no apparent distress HEENT Head and Scalp: atraumatic Resp normal respiratory effort GI soft to palpation and non-tender Bimanual Exam - Vag & Uterus: uterus non-tender Uterus Palpation: uterus fundus firm (below Umbilicus) Assessment & Plan (1) Vaginal delivery: PLAN: s/p PPD # 1 1. routine post delivery care 2. breast feeding- support given 3. rh positive 4. rubella immune
== END 2022-03-15 09:20 | disposition home or self-care (01) | DRG 560 ==
LOC: WPOUT 03:36 → WP 03:36
PROVIDERS: Admitting Provider Obstetrics & Gynecology; PCP Family Medicine; Visit Provider Obstetrics & Gynecology
DX: O69.81X0 Labor and delivery complicated by cord around neck, without compression, not applicable or unspecified (principal); Z37.0 Single live birth; Z3A.37 37 weeks gestation of pregnancy
CPT/HCPCS: 59025; 85025; 86850; 86900; 86901; 87426; 99218; G0378